=== PATIENT | male | born 1980 | race Caucasian/White ===

== ENCOUNTER 2022-07-23 09:52 | Inpatient (IN) | payer OTHER ==
[2022-07-23 10:10] VITALS: BMI 26.6
[2022-07-23] MEDS ORDERED: AMMONIUM LACTATE 12% LOTION 225 GM BOTTLE TP PRN (10:21)
[2022-07-23] MEDS ORDERED: MAGNESIUM HYDROX 2400MG/30ML ORAL SUSPENSION 30 ML CUP PO PRN (10:21)
[2022-07-23] MEDS ORDERED: IBUPROFEN 400 MG TABLET (FP) PO PRN (10:21)
[2022-07-23] MEDS ORDERED: NALOXONE HCL 0.4 MG/ML VIAL IM PRN (10:21)
[2022-07-23] MEDS ORDERED: NICOTINE 10 MG CARTRIDGE (INHALER) IH PRN (10:21)
[2022-07-23] MEDS ORDERED: ACETAMINOPHEN 325 MG TABLET (FP) PO PRN (10:21)
[2022-07-23] MEDS ORDERED: guaiFENesin 600 MG TABLET.ER (FP) PO PRN (10:21)
[2022-07-23] MEDS ORDERED: cloNIDine HCL 0.1 MG TABLET PO PRN (10:21)
[2022-07-23] MEDS ORDERED: ONDANSETRON *ODT* 4 MG TABLET SL PRN (10:21)
[2022-07-23] MEDS ORDERED: COLLOIDAL OATMEAL 1 BAR EACH TP PRN (10:21)
[2022-07-23] MEDS ORDERED: LOPERAMIDE HCL 2 MG CAPSULE PO PRN (10:21)
[2022-07-23] MEDS ORDERED: POLYETHYLENE GLYCOL (HEALTHYLAX) 3350 17 GM PACKET PO PRN (10:21)
[2022-07-23] MEDS ORDERED: BISMUTH SUBSALICYLATE 262 MG/15 ML BTL PO PRN (10:21)
[2022-07-23] MEDS ORDERED: DICYCLOMINE HCL 10 MG CAPSULE PO PRN (10:21)
[2022-07-23] MEDS ORDERED: methaDONE HCL 10 MG TABLET (FOR DETOX USE ONLY) PO ONE (10:21)
[2022-07-23] MEDS ORDERED: IBUPROFEN 600 MG TABLET (FP) PO PRN (10:21)
[2022-07-23] MEDS ORDERED: MAG HYDROX/AL HYDROX/SIMETH 30 ML UNIT-DOSE CUP PO PRN (10:21)
[2022-07-23] MEDS ORDERED: NALOXONE HCL (KLOXXADO) 8 MG SPRAY NS PRN (10:21)
[2022-07-23] MEDS ORDERED: BENZOCAINE/MENTHOL (CHLORASEPTIC ) LOZENGE MM PRN (10:21)
[2022-07-23] MEDS ORDERED: BENZONATATE 200 MG CAPSULE PO PRN (10:21)
[2022-07-23] MEDS ORDERED: TRIMETHOBENZAMIDE HCL 200MG/2ML INJ IM ONE (10:27)
[2022-07-23] MEDS ORDERED: methaDONE HCL 10 MG TABLET (FOR DETOX USE ONLY) ONE (10:56)
[2022-07-23 14:53] LABS: POTASSIUM 4.4 mmol/L (3.5-5.1)
[2022-07-23 14:57] LABS: ALBUMIN 3.6 g/dl (3.4-5.0); BLOOD UREA NITROGEN 17.4 mg/dL (7-18)
[2022-07-23 15:01] LABS: BILIRUBIN,TOTAL 0.5 mg/dL (0.2-1); TOT PROT 7.6 g/dl (6.4-8.2)
[2022-07-23 15:09] LABS: HEMATOCRIT 39.5 % (35.4-49); HEMOGLOBIN 13.4 GM/dL (11.7-16.9); MCH 30.8 pg (25.7-33.7); MCHC 33.9 g/dl (32.0-35.9); MEAN CELL VOLUME 90.9 fl (80-96); MEAN PLT VOLUME 9.8 fl (7.5-11.1); PLATELET COUNT 178 10^3/uL (134-434); RBC 4.34 M/mm3 (4.00-5.60); RDW 14.6 % (11.9-15.9); WHITE BLOOD COUNT 11.3 K/mm3 (4.0-10.0)
[2022-07-23 16:07] LABS: HIV INTERPRETATION NEGATIVE (NEGATIVE)
[2022-07-23] MEDS: MELATONIN 5 MG TABLETS PO SCH (21:44)
[2022-07-23] MEDS: METHOCARBAMOL 500 MG TABLET PO PRN (21:44)
[2022-07-23] MEDS: THIAMINE HCL 100 MG TABLET (FP) PO SCH (21:44)
[2022-07-24] MEDS: METHOCARBAMOL 500 MG TABLET PO PRN (10:19)
[2022-07-24] MEDS: PRENATAL VITAMINS W/ FOLIC ACID TABLET (FP) PO SCH (10:19)
[2022-07-24] MEDS: hydrOXYzine PAMOATE 25 MG CAPSULE (FP) PO PRN (10:19)
[2022-07-24] MEDS: THIAMINE HCL 100 MG TABLET (FP) PO SCH (22:24)
[2022-07-24] MEDS: MELATONIN 5 MG TABLETS PO SCH (22:24)
[2022-07-25] MEDS ORDERED: methaDONE HCL 10 MG TABLET (FOR DETOX USE ONLY) PO ONE (10:00)
[2022-07-25] MEDS: NICOTINE POLACRILEX 2 MG GUM BUC PRN ×2 (10:25→17:56)
[2022-07-25] MEDS: PRENATAL VITAMINS W/ FOLIC ACID TABLET (FP) PO SCH (10:27)
[2022-07-25] MEDS: METHOCARBAMOL 500 MG TABLET PO PRN (10:28)
[2022-07-25] MEDS: hydrOXYzine PAMOATE 25 MG CAPSULE (FP) PO PRN (10:28)
[2022-07-25] MEDS: MELATONIN 5 MG TABLETS PO SCH (23:18)
[2022-07-25] MEDS: THIAMINE HCL 100 MG TABLET (FP) PO SCH (23:18)
[2022-07-26 06:32] VITALS: BP 109/64; PULSE 65; RESP 17; TEMP 98.2
[2022-07-26] MEDS: PRENATAL VITAMINS W/ FOLIC ACID TABLET (FP) PO SCH (09:35)
[2022-07-27] MEDS ORDERED: methaDONE HCL 10 MG TABLET (FOR DETOX USE ONLY) PO ONE (10:00)
== END 2022-07-26 10:10 | disposition left against medical advice (07) | DRG 770 ==
LOC: YASAS 09:52 → Y3N 11:19
PROVIDERS: ADMIT Allergy & Immunology; ATTEND Surgery
PROC: HZ2ZZZZ Detoxification Services for Substance Abuse Treatment (ICD-10-PCS; principal; 2022-07-23)
DX: F11.23 Opioid dependence with withdrawal (principal); F12.20 Cannabis dependence, uncomplicated; F17.210 Nicotine dependence, cigarettes, uncomplicated
CPT/HCPCS: 36415; 80053; 85027; 86780; 87389; C9803-CS; U0003; U0005